=== PATIENT | female | born 1955 | race Caucasian/White ===

== ENCOUNTER → 2017-08-04 11:47 | Emergency (ER) | payer OTHER ==
[2017-08-04 13:28] LABS: ABS Basophils 0.1 10^3/ul (0-0.2); ABS Eosinophils 0.1 10^3/ul (0-0.6); ABS Lymphocytes 1.6 10^3/ul (1.0-4.8); ABS Monocytes 0.7 10^3/ul (0-0.8); ABS Neutrophils 7.3 10^3/ul (1.5-7.7); ABS Nucleated RBC 0 10^3/ul; Eosinophil % 1.2 % (0-6); Hematocrit 38 % (35-47); Hemoglobin 13.2 g/dl (12.0-16.0); Lymphocyte % 16.5 % (25-47); Mean Corpuscular HGB Conc 35 g/dl (31-36); Mean Corpuscular Hemoglobin 31 pg (27-31); Mean Corpuscular Volume 89 fL (80-97); Mean Platelet Volume 8 um3 (7.4-10.4); Nucleated Red Blood Cells % 0; Platelet Count 348 10^3/ul (150-450); Red Blood Count 4.29 10^6/ul (4.0-5.4); Red Cell Distribution Width 14 % (10.5-15); White Blood Count 9.7 10^3/ul (3.5-10.8)
--- NOTE | 2017-08-04 13:43 | RAD ---
Indication: Right flank pain. Lung bases demonstrate no pleural fluid, nodules or masses. Heart is of normal size without evidence of pericardial effusion. Liver is normal in size. No focal lesions or intrahepatic ductal dilatation is noted. The gallbladder demonstrates no calcified gallstones. No pericholecystic fluid or wall thickening is noted. Pancreas demonstrates no mass or pancreatic duct dilatation. Spleen is normal in size. No adrenal lesions are noted. The kidneys demonstrates no hydronephrosis in either kidney. Nonobstructing calculi is noted in both kidneys calyces. Aorta and inferior vena cava are unremarkable. No retroperitoneal lymphadenopathy is noted. No dilated loops of bowel are noted. The uterus and ovaries are unremarkable. Urinary bladder is unremarkable. Anterior abdominal wall hernia containing omentum is noted. No hernias are noted. No free fluid is identified. Appendix is visualized. No dilated loops of bowel are noted. IMPRESSION: No evidence of obstructive uropathy is noted. Nonobstructing calculi are noted in both kidneys.
[2017-08-04 13:44] LABS: EGFR Non-African American 42.1 (>60)
[2017-08-04 14:10] LABS: Urine Appearance Clear; Urine Blood Negative (Negative); Urine Color Straw; Urine Ketones Negative (Negative); Urine Protein Negative (Negative); Urine Specific Gravity 1.008 (1.010-1.030); Urine Urobilinogen Negative (Negative)
[2017-08-04 14:53] VITALS: BP 166/81
--- NOTE | 2017-08-06 07:48 | ED ---
Doc Figueroa Angela, scribed for John Guerra MD on 08/04/17 at 1243 . Abdominal Pain/Female - HPI Summary HPI Summary: This pt is a 62 y/o female presenting to [facility] c/o right flank pain for the past few days. She reports she her pain radiates to her back now. Pt additionally notes some nausea. Denies hematuria, dysuria, difficulty urinating , fever. She rates her pain 5 to 7 out of 10 in severity. Pt has hx of kidney stones. Her urologist is in [place]. Pt used to see Dr. Gómez at [facility], but has not seen him in a couple of years. - History of Current Complaint Chief Complaint: EDFlankPain Stated Complaint: RT FLANK PAIN Time Seen by Provider: 08/04/17 12:36 Hx Obtained From: Patient Onset/Duration: Lasting Days, Still Present Timing: Days Severity Currently: Severe Pain Intensity: 7 Pain Scale Used: 0-10 Numeric Location: Flank - right Radiates: Yes Radiates to: Back Aggravating Factor(s): Nothing Alleviating Factor(s): Nothing Associated Signs and Symptoms: Positive: Back Pain, Nausea. Negative: Fever, Urinary Symptoms, Vomiting Allergies/Adverse Reactions: Allergies Allergy/AdvReac Type Severity Reaction Status Date / Time morphine Allergy Agitation Verified 08/04/17 12:50 DUST Allergy Intermediate "ASTHMATIC" Uncoded 05/08/13 09:56 DRY BEANS Allergy Unknown Unknown Uncoded 05/08/13 09:56 Reaction Details molds & smuts Allergy Unknown Uncoded 08/04/17 12:50 Reaction Details Home Medications: Home Medications Aspirin EC Low Dose* [Ecotrin EC Low Dose 81 MG*] 81 mg PO DAILY 08/04/17 [ History Confirmed 08/04/17] Bifidobacterium Infantis [Align] 4 mg PO DAILY 08/04/17 [History Confirmed 08/04] Cholecalciferol TAB* [Vitamin D TAB*] 5,000 unit PO DAILY 08/04/17 [History Confirmed 08/04/17] Cyanocobalamin TAB* [Vitamin B12 TAB*] 500 mcg PO DAILY 08/04/17 [History Confirmed 08/04/17] Insulin GLARGINE(*) [Lantus(*)] 35 - 40 units SUBCUT BID 08/04/17 [History Confirmed 08/04/17] Lactobacillus Acidophilus [Freeze Dried Acidophilus] 1 cap PO DAILY 08/04/17 [ History Confirmed 08/04/17] Magnesium Oxide TAB* [MagOx 400 TAB*] 400 mg PO DAILY 08/04/17 [History Confirmed 08/04/17] [place]-3 Fatty Acids (Nf) [Fish Oil (NF)] 1,000 mg PO DAILY 08/04/17 [History Confirmed 08/04/17] Potassium Citrate (NF) [Urocit-K 10 (NF)] 5 meq PO .@1400 08/04/17 [History Confirmed 08/04/17] Potassium Citrate (NF) [Urocit-K 10 (NF)] 10 meq PO BID 08/04/17 [History Confirmed 08/04/17] PMH/Surg Hx/FS Hx/Imm Hx Endocrine/Hematology History: Reports: Hx Diabetes Cardiovascular History: Reports: Hx Hypertension - ON MEDS, 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 30 YEARS AGO. Hx Anesthesia Reactions: No Infectious Disease History: No Infectious Disease History: Denies: Traveled Outside the [place] in Last 30 Days - Family History Known Family History: Positive: Diabetes Family History: Mother: Lung CA. Sister: breast CA - Social History Alcohol Use: None Substance Use Type: Reports: None Smoking Status (MU): Never Smoked Tobacco Review of Systems Negative: Fever, Chills ENT: Negative Cardiovascular: Negative Respiratory: Negative Positive: Nausea. Negative: Vomiting Positive: flank pain - right. Negative: dysuria, frequency, hematuria, urgency Musculoskeletal: Other - back pain All Other Systems Reviewed And Are Negative: Yes Physical Exam - Summary Physical Exam Summary: VITAL SIGNS: Reviewed. GENERAL: Patient is a well-developed and nourished female who is lying comfortable in the stretcher. Patient is not in any acute respiratory distress. HEAD AND FACE: Normocephalic and atraumatic. EYES: PERRLA, EOMI x 2, No injected conjunctiva. EARS: Hearing grossly intact. Ear canals and tympanic membranes are WNL. MOUTH: Oropharynx within normal limits. NECK: Supple, trachea is midline, no adenopathy, no JVD. CHEST: Symmetric, no tenderness at palpation LUNGS: Clear to auscultation bilaterally. No wheezing or crackles. CVS: RRR, S1 and S2 present, no murmurs or gallops appreciated. ABDOMEN: Soft. Right costovertebral angle tenderness. No signs of distention. Positive bowel sounds. No rebound no guarding, and no masses palpated. No abdominal bruit or pulsations. EXTREMITIES: FROM in all major joints, no edema, no cyanosis or clubbing. NEURO: Alert and oriented x 3. No acute neurological deficits. Speech is normal. SKIN: Dry and warm Triage Information Reviewed: Yes Vital Signs On Initial Exam: Initial Vitals Temp Pulse Resp BP Pulse Ox 98.9 F 112 20 226/101 98 08/04/17 11:48 08/04/17 11:48 08/04/17 11:48 08/04/17 11:48 08/04/17 11:48 Vital Signs Reviewed: Yes Diagnostics - Vital Signs Vital Signs Temp Pulse Resp BP Pulse Ox 08/04/17 11:48 98.9 F 112 20 226/101 98 - Laboratory Lab Results: Lab Results 08/04/17 08/04/17 08/04/17 Range/Units 13:05 13:05 13:57 WBC 9.7 (3.5-10.8) 10^3/ul RBC 4.29 (4.0-5.4) 10^6/ul Hgb 13.2 (12.0-16.0) g/dl Hct 38 (35-47) % MCV 89 (80-97) fL MCH 31 (27-31) pg MCHC 35 (31-36) g/dl RDW 14 (10.5-15) % Plt Count 348 (150-450) 10^3/ul MPV 8 (7.4-10.4) um3 Neut % (Auto) 74.9 (38-83) % Lymph % (Auto) 16.5 L (25-47) % [place] % (Auto) 6.7 (0-7) % Eos % (Auto) 1.2 (0-6) % Baso % (Auto) 0.7 (0-2) % Absolute Neuts (auto) 7.3 (1.5-7.7) 10^3/ul Absolute Lymphs (auto) 1.6 (1.0-4.8) 10^3/ul Absolute Monos (auto) 0.7 (0-0.8) 10^3/ul Absolute Eos (auto) 0.1 (0-0.6) 10^3/ul Absolute Basos (auto) 0.1 (0-0.2) 10^3/ul Absolute Nucleated RBC 0 10^3/ul Nucleated RBC % 0 Sodium 136 (133-145) mmol/L Potassium 4.0 (3.5-5.0) mmol/L Chloride 101 (101-111) mmol/L Carbon Dioxide 28 (22-32) mmol/L Anion Gap 7 (2-11) mmol/L BUN 16 (6-24) mg/dL Creatinine 1.28 H (0.51-0.95) mg/dL Est GFR ( Amer) 54.2 (>60) Est GFR (Non-Af Amer) 42.1 (>60) BUN/Creatinine Ratio 12.5 (8-20) Glucose 80 (70-100) mg/dL Calcium 9.8 (8.6-10.3) mg/dL Total Bilirubin 0.60 (0.2-1.0) mg/dL AST 14 (13-39) U/L ALT 14 (7-52) U/L Alkaline Phosphatase 55 (34-104) U/L C-Reactive Protein 13.83 H (< 5.00) mg/L Total Protein 7.4 (6.4-8.9) g/dL Albumin 4.2 (3.2-5.2) g/dL Globulin 3.2 (2-4) g/dL Albumin/Globulin Ratio 1.3 (1-3) Lipase 28 (11.0-82.0) U/L Urine Color Straw Urine Appearance Clear Urine pH 7.0 (5-9) Ur Specific [place] 1.008 L (1.010-1.030) Urine Protein Negative (Negative) Urine Ketones Negative (Negative) Urine Blood Negative (Negative) Urine Nitrate Negative (Negative) Urine Bilirubin Negative (Negative) Urine Urobilinogen Negative (Negative) Ur Leukocyte Esterase 1+ A (Negative) Urine WBC (Auto) Trace(0-5/hpf) (Absent) Urine RBC (Auto) Trace(0-2/hpf) (Absent) Ur Squamous Epith Cells Present A (Absent) Ur Transition Epith Cell Present A (Absent) Urine Bacteria 1+ A (Absent) Urine Glucose Negative (Negative) Result Diagrams: 08/04/17 13:05 08/04/17 13:05 Lab Statement: Any lab studies that have been ordered have been reviewed, and results considered in the medical decision making process. - CT Abdomen/Pelvis CT CT Interpretation: No Acute Changes - IMPRESSION: No evidence of obstructive uropathy is noted. Nonobstructing calculi are noted in both kidneys. Dr. Guerra has reviewed this radiology report. CT Interpretation Completed By: Radiologist Re-Evaluation - Re-Evaluation First Eval Re-Evaluation Time: 14:26 Comment: I reviewed the lab and CT results with the pt. Abdominal Pain Fem Course/Dx - Course Course Of Treatment: This pt is a 62 y/o female presenting to [facility] c/o right flank pain for the past few days. She reports she her pain radiates to her back now. Pt additionally notes some nausea. Denies hematuria, dysuria, difficulty urinating, fever. She rates her pain 5 to 7 out of 10 in severity. Pt has hx of kidney stones. Her urologist is in [place]. Pt used to see Dr. Gómez at [facility] , but has not seen him in a couple of years. Test results without any significant abnormalities for CRP of 13.83. Abdomen/Pelvis CT shows no evidence of obstructive uropathy is noted. Nonobstructing calculi are noted in both kidneys. I discussed all the findings and test results with the patient. Patient was instructed to return to the emergency room immediately if any of the symptoms return or worsens. Plan of care was discussed with the patient and understands and agrees. All questions were answered at patient satisfaction. There were no further complaints or concerns. Therefore the pt will be discharged to home with follow up from her PCP. Pt was given a prescription for Percocet for the pain. She is instructed to return to the ED for any worsening or new symptoms. Pt understands and agrees. Pt is hemodynamically stable, alert and oriented x3. - Diagnoses Differential Diagnosis: Positive: Renal Colic, Urinary Tract Infection Provider Diagnoses: Flank pain Discharge - Discharge Plan Condition: Stable Disposition: HOME Prescriptions: oxyCODONE/Acetamin 5/325 MG* [Percocet 5/325 TAB*] 1 tab PO Q6H PRN #12 tab MDD 4 tabs PRN Reason: Pain Patient Education Materials: Flank Pain (ED) Referrals: Russell Macedo MD [Primary Care Provider] - 3 Days Additional Instructions: Please follow up with your primary care provider. RETURN TO THE ED FOR ANY WORSENING SYMPTOMS. The documentation as recorded by the Doc allan Angela accurately reflects the service I personally performed and the decisions made by , John Guerra MD.
--- NOTE | 2017-08-06 09:46 | PN ---
Progress Note - Progress Note Date of Service: 08/04/17 Note: patient diagnosed with flank pain. urine culture grew 75-100,00 of group strep B and 10-25,000 of normal awais. was not having UTI symptoms other than flank pain at visit. amount of growth on urine culture does not require treatment at this time. Dr Guerra agrees. No further action required at this time.
== END | disposition home or self-care (01) ==
LOC: ED 11:47
DX: R10.84 Generalized abdominal pain (principal); M54.9 Dorsalgia, unspecified; R11.0 Nausea
CPT/HCPCS: 36415; 74176; 80053; 81003; 81015; 82306; 83036; 83690; 85025; 86140; 87077; 87086; 99282

== ENCOUNTER 2019-03-20 08:18 | Day surgery (SDC) | payer OTHER ==
[2019-03-20] MEDS ORDERED: Phenylephrine OPHTH SOL 2.5%* 2 ML ONE (08:59)
[2019-03-20] MEDS ORDERED: Povidone Iodine 5% OPTH* 30 ML BTL ONE (08:59)
[2019-03-20] MEDS ORDERED: Tetracaine 0.5% OPTH.SOL 4 ML* 1 DROP BTL ONE (08:59)
[2019-03-20] MEDS ORDERED: acetaZOLAMIDE TAB* 250 MG ONE (08:59)
[2019-03-20] MEDS ORDERED: Cyclopentolate 1% OPTH.SOL* 2 ML BTL ONE (08:59)
[2019-03-20] MEDS ORDERED: Ketorolac 0.5% OPHTH (NF) 0.5 % 5 ML BTL ONE (08:59)
[2019-03-20] MEDS ORDERED: Neomycin/Polymy/Dex OPHTH.OIN* 3.5 GM ONE (08:59)
[2019-03-20] MEDS ORDERED: Tropicamide 1% OPTH.SOL* BTL ONE (08:59)
[2019-03-20] MEDS ORDERED: Lidocaine 1% MPF ** 5 ML VIAL ONE (08:59)
[2019-03-20] MEDS ORDERED: Midazolam* 1 MG/ML 2 ML VIAL (2 MG) ONE (09:09)
[2019-03-20] MEDS ORDERED: Metoprolol Tartrate IV* 1 MG/ML 5 ML VIAL ONE (09:29)
[2019-03-20 10:14] VITALS: BP 147/61
--- NOTE | 2019-03-20 11:02 | OP ---
DATE OF OPERATION: 03/20/2019 - [facility] DATE OF : 1955. SURGEON: Antonio Hughes MD ANESTHESIA: Monitored anesthesia care. PREOPERATIVE DIAGNOSIS: Cataract, right eye. POSTOPERATIVE DIAGNOSIS: Cataract, right eye. OPERATIVE PROCEDURE: Extracapsular cataract extraction of the right eye with intraocular lens implant. IMPLANT: SN60WF 19.5 diopter lens to the right eye. COMPLICATIONS: None. DESCRIPTION OF PROCEDURE: The patient was given phenylephrine 2.5 % and cyclopentolate 1% eye drops to the operative eye in the preoperative area. The patient was taken to the operating room where a time-out was taken to identify the correct patient, site, and side of surgery. The patient's right eye was prepped and draped in the usual sterile fashion with 5% Betadine. A second time- out was taken to verify the correct patient, side, and site of surgery, as well as the correct lens implant. A lid speculum was placed to the right eye. A 1mm paracentesis blade was used to make a clear corneal incision. Preservative-free 1% lidocaine was injected into the anterior chamber. DisCoVisc was then injected into the anterior chamber. A 2.75 mm keratome blade was used to make a triplanar incision. A cystotome initiated a capsulorrhexis, which was completed with Utrata forceps in a continuous and curvilinear manner. Hydrodissection of the lens was performed with BSS on a cannula. The lens could be spun in a capsular bag. The phacoemulsification handpiece was used with a divide-and- conquer technique to remove the nucleus. The I/A handpiece then removed the residual cortical lens material. DisCoVisc was injected to inflate the capsular bag. The planned SN60WF 19.5 diopter lens was injected into the capsular bag. The residual DisCoVisc was removed from the eye with the I/A handpiece. The corneal incisions were hydrated and no leaks occurred at physiologic pressure around 20 mmHg per palpation. The lid speculum was removed and drapes were removed. Maxitrol ointment was placed to the surface of the operative eye. An adhesive patch and shield was then placed on the operative eye. The patient was taken to the postoperative area in stable condition. [id number]/[facility] #: [id number] [facility]
== END 2019-03-20 10:08 | disposition home or self-care (01) ==
LOC: OREAST 08:18
PROVIDERS: ATTEND Student in an Organized Health Care Education/Training Program
PROC: 08RJ3JZ Replacement of Right Lens with Synthetic Substitute, Percutaneous Approach (ICD-10-PCS; principal; 2019-03-20 09:30)
DX: H25.811 Combined forms of age-related cataract, right eye (principal); E11.9 Type 2 diabetes mellitus without complications; I10 Essential (primary) hypertension; Z79.84 Long term (current) use of oral hypoglycemic drugs; Z79.4 Long term (current) use of insulin; Z87.442 Personal history of urinary calculi
CPT/HCPCS: A9270-GY; J2250; J3490; V2632

== ENCOUNTER 2019-04-03 06:25 | Day surgery (SDC) | payer OTHER ==
[2019-04-03] MEDS ORDERED: Midazolam* 1 MG/ML 2 ML VIAL (2 MG) ONE (07:20)
--- NOTE | 2019-04-03 08:22 | OP ---
DATE OF OPERATION: 04/03/19 [facility] DATE OF : [birth year] SURGEON: Antonio Hughes MD. ANESTHESIA: Monitored anesthesia care. PRE-OP DIAGNOSIS: Cataract, left eye. POST-OP DIAGNOSIS: Cataract, left eye. OPERATIVE PROCEDURE: Extracapsular cataract extraction of the left eye with intraocular lens implant. IMPLANT: SN60WF 17.5-diopter lens to the left eye. COMPLICATIONS: None. DESCRIPTION OF PROCEDURE: The patient was given phenylephrine 2.5 % and cyclopentolate 1% eye drops to the operative eye in the preoperative area. The patient was taken to the operating room where a time-out was taken to identify the correct patient, site, and side of surgery. The patient's left eye was prepped and draped in the usual sterile fashion with 5% Betadine. A second time- out was taken to verify the correct patient, side, and site of surgery, as well as the correct lens implant. A lid speculum was placed to the left eye. A 1mm paracentesis blade was used to make a clear corneal incision. Preservative-free 1% lidocaine was injected into the anterior chamber. DisCoVisc was then injected into the anterior chamber. A 2.75 mm keratome blade was used to make a triplanar incision. A cystotome initiated a capsulorrhexis, which was completed with Utrata forceps in a continuous and curvilinear manner. Hydrodissection of the lens was performed with BSS on a cannula. The lens could be spun in a capsular bag. The phacoemulsification handpiece was used with a divide-and- conquer technique to remove the nucleus. The I/A handpiece then removed the residual cortical lens material. DisCoVisc was injected to inflate the capsular bag. The planned SN60WF 17.5 diopter lens was injected into the capsular bag. The residual DisCoVisc was removed from the eye with the I/A handpiece. The corneal incisions were hydrated and no leaks occurred at physiologic pressure around 20 mmHg per palpation. The lid speculum was removed and drapes were removed. Maxitrol ointment was placed to the surface of the operative eye. An adhesive patch and shield was then placed on the operative eye. The patient was taken to the postoperative area in stable condition. [id number]/[facility] #: [id number] [facility]
[2019-04-03 09:43] VITALS: BP 154/61
[2019-04-03] MEDS ORDERED: acetaZOLAMIDE TAB* 250 MG ONE (13:21)
[2019-04-03] MEDS ORDERED: Cyclopentolate 1% OPTH.SOL* 2 ML BTL ONE (13:21)
[2019-04-03] MEDS ORDERED: Lidocaine 1% MPF ** 5 ML VIAL ONE (13:21)
[2019-04-03] MEDS ORDERED: Tetracaine 0.5% OPTH.SOL 4 ML* 1 DROP BTL ONE (13:21)
[2019-04-03] MEDS ORDERED: Neomycin/Polymy/Dex OPHTH.OIN* 3.5 GM ONE (13:21)
[2019-04-03] MEDS ORDERED: Tropicamide 1% OPTH.SOL* BTL ONE (13:21)
[2019-04-03] MEDS ORDERED: Ketorolac 0.5% OPHTH (NF) 0.5 % 5 ML BTL ONE (13:21)
[2019-04-03] MEDS ORDERED: Phenylephrine OPHTH SOL 2.5%* 2 ML ONE (13:21)
[2019-04-03] MEDS ORDERED: Povidone Iodine 5% OPTH* 30 ML BTL ONE (13:21)
== END 2019-04-03 08:20 | disposition home or self-care (01) ==
LOC: OREAST 06:25
PROVIDERS: ATTEND Student in an Organized Health Care Education/Training Program
DX: H25.812 Combined forms of age-related cataract, left eye (principal); E11.9 Type 2 diabetes mellitus without complications; Z79.4 Long term (current) use of insulin; N18.9 Chronic kidney disease, unspecified; I12.9 Hypertensive chronic kidney disease with stage 1 through stage 4 chronic kidney disease, or unspecified chronic kidney disease; Z87.442 Personal history of urinary calculi
CPT/HCPCS: A9270-GY; J2250; V2632